=== PATIENT | female | born 1955 | race Caucasian/White ===

== ENCOUNTER 2021-09-10 04:42 | Emergency (ER) | payer SELFPAY ==
[~2021-09-10] VITALS: Ht 170.2 cm; Wt 63.5 kg
[~2021-09-10 04:42] MED LIST: IBUHYD PO; PENVK500 PO
[2021-09-10] MEDS ORDERED: MAGCIT300 PO (07:15)
[2021-09-10] MEDS ORDERED: DOCU100 PO (07:15)
== END 2021-09-10 07:26 | disposition home or self-care (01) ==
LOC: ER 04:42
DX: K59.00 Constipation, unspecified (principal)
CPT/HCPCS: 74018; 99283-25; A9270

== ENCOUNTER 2022-08-08 13:07 | Inpatient (IN) | payer OTHER ==
[~2022-08-08] VITALS: Ht 172.7 cm; Wt 50.5 kg
[~2022-08-08 13:07] MED LIST changes: +DOCU100 PO; +MAGCIT300 PO
[2022-08-08 13:52] LABS: Source, Urine Foley catheter
[2022-08-08 13:56] LABS: Appearance, Urine Clear (Clear); Bilirubin, Urine Neg (Neg); Blood, Urine 2+ (Neg); Glucose Qualitative, Urine Neg (Neg); Ketones, Urine 2+ (Neg); Leukocyte Esterase, Urine Neg (Neg); Nitrite, Urine Neg (Neg); Protein, Urine Neg (Neg); Urobilinogen, Urine NORM (Normal); pH, Urine 6.5 (5.0-8.0)
[2022-08-08 14:04] LABS: Color, Urine Pale Yellow (P-Yellow)
[2022-08-08 14:06] LABS: Amorphous Light (0-Heavy); Bacteria Mod /hpf; Red Blood Cells, Urine 0-2 /hpf (0-2); Renal Epithelial Rare /hpf (0-Rare); Squamous Epithelial Cells Rare /hpf (Few); White Blood Cells, Urine 0-2 /hpf (0-5)
[2022-08-08 16:06] LABS: BASOPHILS ABSOLUTE AUTO 0.07 K/mm3 (0.00-0.23); BASOPHILS PERCENT AUTO 0 % (0-2); EOSINOPHILS ABSOLUTE AUTO 0.02 K/mm3 (0.00-0.68); EOSINOPHILS PERCENT AUTO 0 % (0-6); Hematocrit 28.1 % (33.0-51.0); Hemoglobin 8.3 g/dL (11.5-16.0); IMMATURE GRAN ABSOLUTE AUTO 0.18 K/mm3 (0.00-0.10); IMMATURE GRAN PERCENT AUTO 1 % (0-1); LYMPHOCYTES ABSOLUTE AUTO 1.04 K/mm3 (0.84-5.20); LYMPHOCYTES PERCENT AUTO 6 % (21-46); MONOCYTES ABSOLUTE AUTO 0.96 K/mm3 (0.16-1.47); MONOCYTES PERCENT AUTO 5 % (4-13); Mean Corpuscular HGB 19.5 pg (26.0-34.0); Mean Corpuscular HGB Conc 29.5 g/dL (31.5-36.5); Mean Corpuscular Volume 66 fL (80-100); Mean Platelet Volume 8.3 fL (9.1-12.4); NEUTROPHILS ABSOLUTE AUTO 16.07 K/mm3 (1.96-9.15); NEUTROPHILS PERCENT AUTO 88 % (41-73); Platelet Count 556 K/mm3 (150-400); RDW Coefficient Variation 16.8 % (11.7-14.2); RDW Standard Deviation 38.9 fL (35.1-46.3); Red Blood Cell Count 4.26 M/mm3 (3.80-5.20); White Blood Cell Count 18.34 K/mm3 (4.00-11.30)
[2022-08-08 16:24] LABS: Albumin, Blood 2.9 g/dL (3.4-5.0); Albumin/Globulin Ratio 0.6 (0.8-1.8); Bilirubin, Total 1.6 mg/dL (0.1-1.0); Bun/Creatinine Ratio 16.1 (12.0-20.0); Creatinine, Blood 0.62 mg/dL (0.40-1.00); Globulin, Blood 4.5 g/dL (2.2-4.0); Potassium, Blood 3.5 mmol/L (3.5-5.5); Total Protein, Blood 7.4 g/dL (6.4-8.2)
[2022-08-08 19:13] LABS: International Normalized Ratio 1.14; Prothrombin Time Results 11.9 Sec (9.7-11.5)
[2022-08-08 20:37] LABS: Influenza A, PCR NEGATIVE (NEGATIVE); Influenza B, PCR NEGATIVE (NEGATIVE); Resp Syncytial Virus, PCR NEGATIVE (NEGATIVE); SARS-Cov-2 (COVID-19) PCR, MMC NEGATIVE (NEGATIVE)
--- NOTE | 2022-08-09 00:54 | NUR ---
ADMIT PATIENT ADMITTED FROM ER AT 2100. PATIENT SETTLED INTO ROOM. PATIENT ORIENTED TO CALL LIGHT AND TV CONTROL. PATIENT HAS LOPEZ IN PLACE UPON ARRIVAL. PATENT AND DRAINING YELLOW URINE. PATIENT HAD BM UPON ARRIVAL. ADMISSION COMPLETE. PATIENT RESTING COMFORTABLY.
[2022-08-09 04:50] LABS: BASOPHILS ABSOLUTE AUTO 0.05 K/mm3 (0.00-0.23); BASOPHILS PERCENT AUTO 0 % (0-2); EOSINOPHILS ABSOLUTE AUTO 0.09 K/mm3 (0.00-0.68); EOSINOPHILS PERCENT AUTO 1 % (0-6); Hematocrit 24.6 % (33.0-51.0); Hemoglobin 7.2 g/dL (11.5-16.0); IMMATURE GRAN ABSOLUTE AUTO 0.12 K/mm3 (0.00-0.10); IMMATURE GRAN PERCENT AUTO 1 % (0-1); LYMPHOCYTES ABSOLUTE AUTO 1.11 K/mm3 (0.84-5.20); LYMPHOCYTES PERCENT AUTO 7 % (21-46); MONOCYTES ABSOLUTE AUTO 1.22 K/mm3 (0.16-1.47); MONOCYTES PERCENT AUTO 7 % (4-13); Mean Corpuscular HGB 19.4 pg (26.0-34.0); Mean Corpuscular HGB Conc 29.3 g/dL (31.5-36.5); Mean Corpuscular Volume 66 fL (80-100); Mean Platelet Volume 8.3 fL (9.1-12.4); NEUTROPHILS ABSOLUTE AUTO 14.39 K/mm3 (1.96-9.15); NEUTROPHILS PERCENT AUTO 85 % (41-73); Platelet Count 534 K/mm3 (150-400); RDW Coefficient Variation 16.9 % (11.7-14.2); RDW Standard Deviation 39.5 fL (35.1-46.3); Red Blood Cell Count 3.72 M/mm3 (3.80-5.20); White Blood Cell Count 16.98 K/mm3 (4.00-11.30)
[2022-08-09 05:09] LABS: Calcium, Blood 7.9 mg/dL (8.5-10.1); Creatinine, Blood 0.58 mg/dL (0.40-1.00); Potassium, Blood 3.9 mmol/L (3.5-5.5)
--- NOTE | 2022-08-09 05:29 | NUR ---
SHIFT SUMMARY PATIENT MEDICATED FOR PAIN X2, NAUSEA X1, AND FOR FEVER X1. PATIENT IS IND IN ROOM. PATIENT HAS LOPEZ THAT IS PATENT AND DRAINING TO GRAVITY. PATIENT HAS MASS IN VAGINA, AND WAS UNABLE TO URINATE STARTING YESTERDAY, CATHETER PLACED IN ER WITH 1000ML OUTPUT. PATIENT DRINKING WELL. PATIENT HAD FEVER OF 101.6 ORALLY AROUND 0400. MEDICATED WITH TYLENOL, EFFECTIVE, RECHECK 99.3. PATIENT SLEPT ON AND OFF. PATIENT VERY PLEASANT AND COOPERATIVE WITH CARE.
--- NOTE | 2022-08-09 18:03 | NUR ---
SHIFT SUMMARY NO ACUTE CHANGES DURING SHIFT. PT ALERT AND ORIENTED, CALLS APPROPRIATELY. PT C/O ABD PAIN WHEN TOUCHED, MEDICATED WITH PRN PAIN MEDICATION. ONCOLOGY CONSULTED REGARDING MASS. PT INDEPENDENT IN ROOM. LOPEZ IN PLACE, DRAINING TO GRAVITY. WILL CONTINUE TO MONITOR. CALL LIGHT WITHIN REACH.
--- NOTE | 2022-08-10 03:51 | NUR ---
PLATE PUT IN WORKER SUMMARY VSS. ALERT AND ORIENTED. CONTINUES TO VOICE PAIN OF LOWER ABD - BLADDER AREA. RECEIVING ANALGESICS ABOUT EVERY 4 HRS FOR LOWER ABD PAIN. HOWEVER, VOICED PAIN IS TRENDINGDOWN FROM BEFORE. SEE MAR FOR DETAILS. LOPEZ DRAINING LIGHT YELLOW. PT VOICED IT WAS "ORANGE" BEFORE. HAS BEEN RESTING QUIETLY BETWEEN TIMES SHE REQUESTED ANALGESICS. CALL LIGHT IN REACH.
[2022-08-10 04:13] LABS: Hematocrit 24.5 % (33.0-51.0); Hemoglobin 7.3 g/dL (11.5-16.0); Mean Corpuscular HGB 19.9 pg (26.0-34.0); Mean Corpuscular HGB Conc 29.8 g/dL (31.5-36.5); Mean Corpuscular Volume 67 fL (80-100); Mean Platelet Volume 8.4 fL (9.1-12.4); Platelet Count 515 K/mm3 (150-400); RDW Coefficient Variation 16.7 % (11.7-14.2); RDW Standard Deviation 40.5 fL (35.1-46.3); Red Blood Cell Count 3.67 M/mm3 (3.80-5.20); White Blood Cell Count 8.11 K/mm3 (4.00-11.30)
[2022-08-10 04:36] LABS: Albumin, Blood 2.2 g/dL (3.4-5.0); Albumin/Globulin Ratio 0.6 (0.8-1.8); Bilirubin, Total 0.5 mg/dL (0.1-1.0); Bun/Creatinine Ratio 8.4 (12.0-20.0); Creatinine, Blood 0.59 mg/dL (0.40-1.00); Percent Saturation 4.2 % (15.0-50.0); Potassium, Blood 3.7 mmol/L (3.5-5.5); Total Protein, Blood 6.2 g/dL (6.4-8.2)
--- NOTE | 2022-08-10 19:38 | NUR ---
SHIFT SUMMARY: NO ACUTE EVENTS. C/O PAIN IN LOWER ABDOMEN; MEDICATED PER EMAR WITH ADEQUATE RELIEF. LOPEZ DRAINING ADEQUATE URINE, CL YELLOW. GETTING UP TO BR WITH SBA, HAD BM TODAY. TOLERATING PO INTAKE. WILL BE NPO AT [facility] FOR COLONOSCOPY TOMORROW AFTERNOON.
--- NOTE | 2022-08-11 04:43 | NUR ---
SAMPLE MAKER ORIGINAL SUMMARY CONTINUES TO C/O PAIN OF LOWER ABD. HOWEVER, VOICED PAIN IS LESS INTENSE, RECEIVING ANALGESIC ABOUT EVERY 4 HRS, (SEE MAR FOR DETAILS). HAS BEEN RESTING MORE SOUNDLY TONIGHT COMPARED TO THAT OF 24 HR AGO. AWAKENED EARLIER AND VOICED HAPPY THAT SHE WAS SLEEPING BETTER TONIGHT. LOPEZ DRAINING CLEAR YELLOW. UP AD JASMYN WITH SUPERVISION. VSS. CALLED IN ORDERS FOR PROCEDURE PREP TODAY, INCLUDING NPO EXCEPT WATER, GOLYTELY TO START AT 0700, AND NPO AT 1300 FOR PROCEDURE. PT NOTIFIED. CURRENTLY RESTING QUIETLY. CALL LIGHT IN REACH.
[2022-08-11 04:52] LABS: Hemoglobin 7.9 g/dL (11.5-16.0); Mean Corpuscular HGB 19.7 pg (26.0-34.0); Mean Corpuscular HGB Conc 29.3 g/dL (31.5-36.5); Mean Corpuscular Volume 67 fL (80-100); Mean Platelet Volume 8.4 fL (9.1-12.4); Platelet Count 628 K/mm3 (150-400); RDW Coefficient Variation 17.1 % (11.7-14.2); RDW Standard Deviation 40.8 fL (35.1-46.3); Red Blood Cell Count 4.02 M/mm3 (3.80-5.20)
[2022-08-11 05:22] LABS: Albumin, Blood 2.4 g/dL (3.4-5.0); Albumin/Globulin Ratio 0.6 (0.8-1.8); Bilirubin, Total 0.3 mg/dL (0.1-1.0); Calcium, Blood 8.2 mg/dL (8.5-10.1); Creatinine, Blood 0.5 mg/dL (0.40-1.00); Globulin, Blood 4.2 g/dL (2.2-4.0); Potassium, Blood 3.7 mmol/L (3.5-5.5); Total Protein, Blood 6.6 g/dL (6.4-8.2)
--- NOTE | 2022-08-11 19:04 | NUR ---
SHIFT SUMMARY PT HAD BOWEL PREP MOST OF THE SHIFT AND HAD A COLONOSCOPY THIS AFTERNOON. BIOPSIES TAKEN DURING PROCEDURE. PT ADVANCED TO FULL LIQ DIET. NO OTHER ACUTE CHANGES IN ASSESSMENT AT THIS TIME. PT TOLERATING HER NEWS AND SITUATION WELL. PT RESTING IN BED. CALL LIGHT IN REACH. DENIES OTHER NEEDS AT THIS TIME.
[2022-08-12 05:10] LABS: BASOPHILS ABSOLUTE AUTO 0.05 K/mm3 (0.00-0.23); BASOPHILS PERCENT AUTO 1 % (0-2); EOSINOPHILS ABSOLUTE AUTO 0.18 K/mm3 (0.00-0.68); EOSINOPHILS PERCENT AUTO 3 % (0-6); Hematocrit 24.7 % (33.0-51.0); Hemoglobin 7.5 g/dL (11.5-16.0); IMMATURE GRAN ABSOLUTE AUTO 0.03 K/mm3 (0.00-0.10); IMMATURE GRAN PERCENT AUTO 0 % (0-1); LYMPHOCYTES ABSOLUTE AUTO 1.47 K/mm3 (0.84-5.20); LYMPHOCYTES PERCENT AUTO 22 % (21-46); MONOCYTES ABSOLUTE AUTO 0.68 K/mm3 (0.16-1.47); MONOCYTES PERCENT AUTO 10 % (4-13); Mean Corpuscular HGB 20.2 pg (26.0-34.0); Mean Corpuscular HGB Conc 30.4 g/dL (31.5-36.5); Mean Corpuscular Volume 66 fL (80-100); Mean Platelet Volume 8.1 fL (9.1-12.4); NEUTROPHILS PERCENT AUTO 65 % (41-73); Platelet Count 578 K/mm3 (150-400); RDW Coefficient Variation 16.7 % (11.7-14.2); RDW Standard Deviation 39.9 fL (35.1-46.3); Red Blood Cell Count 3.72 M/mm3 (3.80-5.20); White Blood Cell Count 6.81 K/mm3 (4.00-11.30)
[2022-08-12 05:16] LABS: Bun/Creatinine Ratio 9.3 (12.0-20.0); Calcium, Blood 8.3 mg/dL (8.5-10.1); Creatinine, Blood 0.54 mg/dL (0.40-1.00); Potassium, Blood 3.7 mmol/L (3.5-5.5)
--- NOTE | 2022-08-12 07:32 | NUR ---
SHIFT PRODUCTION SUPERVISOR SUMMARY VSS. HAS BEEN RESTING QUIETLY WITH FEW INTERRUPTIONS THROUGH NOCT. ALTHOUGH STILL REQUESTING ANALGESICS FOR ABD PAIN, THE PAIN IS LESS INTENSE AND ASKED FOR MEDS FURTHER APART TIMES. STATED SHE WAS HAVING BETTER SLEEP WELL. LOPEZ DRAINING, CLEAR YELLOW. HAD SOME NAUSEA ONCE, ZOFRAN EFFECTIVE. CALL LIGHT IN REACH. WILL CONTINUE TO MONITOR.
[2022-08-12] MEDS ORDERED: CEFD300 PO (16:21)
[2022-08-12] MEDS ORDERED: OXYACE7.5T PO (16:21)
[2022-08-12] MEDS ORDERED: ONDA4 PO (16:21)
[2022-08-12] MEDS ORDERED: MIRALAX17 GM PO (16:22)
--- NOTE | 2022-08-12 17:09 | NUR ---
DISCHARGED PT DISCHARGED AT 1700. PT EDUCATED ON NEW MEDS AND FOLLOW UP APPOINTMENTS. PT SENT WITH HARD SCRIPT FOR PERCOCET. NEW PT APPOINTMENT SET UP BY DC SIMONIZER WITH [facility]. THIS RN SPOKE WITH DR. BURT ABOUT REFERAL FOR SURGERY. DR. BURT CONFIRMED THAT HE WILL BE SETTING THAT ALL UP FOR THE PT. NO OTHER ACUTE CHANGES IN ASSESSMENT PRIOR TO DC. PT EDUCATED ON LOPEZ CATH HOME CARE. PT WHEELED OUT AND HER FRIEND DROVE HER HOME.
--- NOTE | 2022-08-19 06:20 | NUR ---
08/19/22 0620 Rosio Puente NOTE: PRIOR TO PROCEDURE HISTORY, CHART, MEDICATIONS AND ALLERGIES REVIEWED BEFORE START OF PROCEDURE. PATIENT CONFIRMS NPO STATUS AND AGREES WITH SCHEDULED PROCEDURE. 3-LEAD EKG REVIEWED WITH PHYSICIAN PRIOR TO START OF PROCEDURE. MONITOR INTACT WITH CONTINUOUS PULSE OXIMETRY,CAPNOGRAPHY, 3-LEAD EKG, INTERMITTENT BP. SUPPLEMENTAL O2 TO BE TITRATED THROUGHOUT PROCEDURE TO MAINTAIN O2 SATURATION ABOVE 90%. PATIENT DETERMINED TO BE ASA APPROPRIATE FOR PROPOFOL SEDATION PRIOR TO START OF PROCEDURE BY DR. BURT
== END 2022-08-12 16:57 | disposition home or self-care (01) | DRG 872 ==
LOC: ER 13:07 → MEDS 17:57
PROVIDERS: Emergency Medicine; Internal Medicine; Internal Medicine Gastroenterology; Student in an Organized Health Care Education/Training Program; ADMIT Hospitalist
PROC: 0DBP8ZX Excision of Rectum, Via Natural or Artificial Opening Endoscopic, Diagnostic (ICD-10-PCS; principal; 2022-08-11 16:00)
DX: A41.9 Sepsis, unspecified organism (principal); N39.0 Urinary tract infection, site not specified; E87.1 Hypo-osmolality and hyponatremia; D64.9 Anemia, unspecified; K59.09 Other constipation; Z20.822 Contact with and (suspected) exposure to COVID-19; R33.9 Retention of urine, unspecified; R91.1 Solitary pulmonary nodule; R19.00 Intra-abdominal and pelvic swelling, mass and lump, unspecified site; D50.9 Iron deficiency anemia, unspecified; K62.9 Disease of anus and rectum, unspecified; D75.839 Thrombocytosis, unspecified; Z90.89 Acquired absence of other organs; Z79.899 Other long term (current) drug therapy
CPT/HCPCS: 0241U; 36415; 51702; 51798; 74177; 80048; 80053; 81001; 82378; 82728; 83540; 83550; 83605; 85025; 85027; 85610; 85730; 86304; 87086; 88305; 96374-59; 96375-59; 96376-59; 99285-25; A9270; J0696; J1650; J2270; J2405; J2704; J7030; J7120; Q9967

== ENCOUNTER 2022-08-29 11:20 | Inpatient (IN) | payer OTHER ==
[~2022-08-29] VITALS: Ht 170.2 cm; Wt 48.9 kg
[~2022-08-29 11:20] MED LIST changes: +CEFD300 PO; +MIRALAX17 GM PO; +ONDA4 PO; +OXYACE7.5T PO
[2022-08-29 12:15] LABS: BASOPHILS ABSOLUTE AUTO 0.06 K/mm3 (0.00-0.23); BASOPHILS PERCENT AUTO 0 % (0-2); EOSINOPHILS PERCENT AUTO 1 % (0-6); Hematocrit 27.5 % (33.0-51.0); Hemoglobin 7.8 g/dL (11.5-16.0); IMMATURE GRAN ABSOLUTE AUTO 0.12 K/mm3 (0.00-0.10); IMMATURE GRAN PERCENT AUTO 1 % (0-1); LYMPHOCYTES ABSOLUTE AUTO 1.41 K/mm3 (0.84-5.20); LYMPHOCYTES PERCENT AUTO 9 % (21-46); MONOCYTES ABSOLUTE AUTO 1.15 K/mm3 (0.16-1.47); MONOCYTES PERCENT AUTO 8 % (4-13); Mean Corpuscular HGB Conc 28.4 g/dL (31.5-36.5); Mean Corpuscular Volume 67 fL (80-100); Mean Platelet Volume 8.1 fL (9.1-12.4); NEUTROPHILS ABSOLUTE AUTO 12.36 K/mm3 (1.96-9.15); NEUTROPHILS PERCENT AUTO 81 % (41-73); Platelet Count 698 K/mm3 (150-400); RDW Coefficient Variation 17.9 % (11.7-14.2)
[2022-08-29 12:59] LABS: Albumin, Blood 2.9 g/dL (3.4-5.0); Albumin/Globulin Ratio 0.7 (0.8-1.8); Bilirubin, Total 0.5 mg/dL (0.1-1.0); Calcium, Blood 8.9 mg/dL (8.5-10.1); Creatinine, Blood 0.66 mg/dL (0.40-1.00); Globulin, Blood 4.1 g/dL (2.2-4.0)
[2022-08-29 15:26] LABS: Source, Urine Foley catheter
[2022-08-29 15:28] LABS: Appearance, Urine Clear (Clear); Bilirubin, Urine Neg (Neg); Blood, Urine 4+ (Neg); Color, Urine Yellow (P-Yellow); Glucose Qualitative, Urine Neg (Neg); Ketones, Urine 1+ (Neg); Leukocyte Esterase, Urine 1+ (Neg); Nitrite, Urine Neg (Neg); Protein, Urine Neg (Neg); Urobilinogen, Urine NORM (Normal)
[2022-08-29 15:37] LABS: Bacteria Mod /hpf; Squamous Epithelial Cells Few /hpf (Few)
[2022-08-29] MEDS ORDERED: Norco 7.5/325 Tablet PO (16:03)
[2022-08-29] MEDS ORDERED: ONDA4ODT PO (16:04)
[2022-08-30 04:00] LABS: BASOPHILS ABSOLUTE AUTO 0.06 K/mm3 (0.00-0.23); BASOPHILS PERCENT AUTO 0 % (0-2); EOSINOPHILS ABSOLUTE AUTO 0.12 K/mm3 (0.00-0.68); EOSINOPHILS PERCENT AUTO 1 % (0-6); Hematocrit 25.5 % (33.0-51.0); Hemoglobin 7.2 g/dL (11.5-16.0); IMMATURE GRAN ABSOLUTE AUTO 0.13 K/mm3 (0.00-0.10); IMMATURE GRAN PERCENT AUTO 1 % (0-1); LYMPHOCYTES ABSOLUTE AUTO 0.89 K/mm3 (0.84-5.20); LYMPHOCYTES PERCENT AUTO 6 % (21-46); MONOCYTES ABSOLUTE AUTO 1.39 K/mm3 (0.16-1.47); MONOCYTES PERCENT AUTO 10 % (4-13); Mean Corpuscular HGB 19.3 pg (26.0-34.0); Mean Corpuscular HGB Conc 28.2 g/dL (31.5-36.5); Mean Corpuscular Volume 68 fL (80-100); Mean Platelet Volume 8.1 fL (9.1-12.4); NEUTROPHILS ABSOLUTE AUTO 11.63 K/mm3 (1.96-9.15); NEUTROPHILS PERCENT AUTO 82 % (41-73); Platelet Count 493 K/mm3 (150-400); RDW Coefficient Variation 18.6 % (11.7-14.2); RDW Standard Deviation 42.5 fL (35.1-46.3); Red Blood Cell Count 3.73 M/mm3 (3.80-5.20); White Blood Cell Count 14.22 K/mm3 (4.00-11.30)
[2022-08-30 04:25] LABS: Albumin, Blood 2.4 g/dL (3.4-5.0); Albumin/Globulin Ratio 0.6 (0.8-1.8); Bilirubin, Total 0.8 mg/dL (0.1-1.0); Calcium, Blood 8.8 mg/dL (8.5-10.1); Creatinine, Blood 0.75 mg/dL (0.40-1.00); Globulin, Blood 4.1 g/dL (2.2-4.0); Potassium, Blood 3.9 mmol/L (3.5-5.5); Total Protein, Blood 6.5 g/dL (6.4-8.2)
--- NOTE | 2022-08-30 05:10 | NUR ---
SHIFT SUMMARY PT A&Ox4, CALLS AND COMMUNICATES NEEDS APPROPRIATELY. VSS, SpO2> 92% RA, SINUS 80's. PT FREQUENTLY NEEDING TO USE BATHROOM DURING SHIFT, PT AMBULATED WITH SBA. PT WITH MULTIPLE, VERY SMALL, LOOSE BM's AND PASSING LOTS OF GAS. NO EMESIS THIS SHIFT. LOPEZ CATHETER IN PLACE, PATENT, DRAINING TO GRAVITY. PT WITH INCREASING ABDOMINAL PAIN, MEDICATED PER EMAR, PT REPORTS THAT PASSING GAS HELPS EASE PAIN. PT REMAINED NPO, EXCEPT SMALL SIPS OF WATER DURING MEDICATION ADMINISTRATION. NO OTHER EVENTS THIS SHIFT, WILL REPORT TO DAY SHIFT RN.
--- NOTE | 2022-08-30 09:58 | NUR ---
08/30/22 0958 Destiny Posada NO PREOP ANTIBIOTICS ORDERED PATIENT IS ON SCHEDULED ANTIBIOTICS.
--- NOTE | 2022-08-30 15:24 | NUR ---
SHIFT SUMMARY PT IS A&O, PLEASANT AND CO-OP WITH CARE. DR TSE IN TO SEE PT DURING SHIFT REPORT TO DISCUSS PLAN OF CARE. PT NPO AT START OF SHIFT FOR SX TO PLACE COLOSTOMY. PT UP TO SHOWER PRIOR TO SX, INDEPENDENT IN . DR MURRAY IN TO SEE PT AND DISCUSS SX PROCESS, PT AGREEABLE AND GRATEFUL. PT TOLERATED SX WELL AND RETURNED TO ; VSS, SEE CHART. COLOSTOMY TO LLQ, WNL'S. PT BEING TREATED FOR UTI. PER DR MURRAY TO PT, MEDIPORT PLACEMENT PLAN FOR THURSDAY. PT CLEARED FOR REGULAR DIET WHEN RETURNED TO . PT ABLE TO EAT A FEW BITES OF EVERYTHING AT [facility], BUT REPORTED FENTANYL GIVEN AFTER SX MADE HER A LITTLE DIZZY. ZOFRAN GIVEN PER REQUEST. FAMILY IN TO VISIT IMMEDIATELY AFTER RETURNING TO , LATER LEAVING SO PT COULD REST. PT HAS BEEN AWAKE AND ON HER PHONE MOST OF THE DAY. PT REPORTED SM AMT OF PAIN IN ABD WHEN COUGHING ONLY. 1 UNIT PRBC'S ORDERED THIS AM BY DR MURRAY. PT REFUSING TRANSFUSION AT THIS TIME. WANTS TO WAIT AND SEE UNTIL AT LEAST TOMORROW. DR MURRAY UPDATED AND REPORTED MINIMAL BLOOD LOSS AT SX. PT LYING FOWLERS, TALKING ON PHONE. DENIED FURTHER NEEDS AT THIS TIME. CALL LT IN REACH.
--- NOTE | 2022-08-30 18:44 | NUR ---
PT REPORTED LARGE BM THIS MORNING, PRIOR TO SX FOR OSTOMY PLACEMENT. PT REPORTS PASSING GAS THIS EVENING FROM ST[place].
[2022-08-31 03:57] LABS: BASOPHILS ABSOLUTE AUTO 0.02 K/mm3 (0.00-0.23); BASOPHILS PERCENT AUTO 0 % (0-2); EOSINOPHILS ABSOLUTE AUTO 0.04 K/mm3 (0.00-0.68); EOSINOPHILS PERCENT AUTO 0 % (0-6); Hemoglobin 7.4 g/dL (11.5-16.0); IMMATURE GRAN ABSOLUTE AUTO 0.11 K/mm3 (0.00-0.10); IMMATURE GRAN PERCENT AUTO 1 % (0-1); LYMPHOCYTES PERCENT AUTO 10 % (21-46); MONOCYTES ABSOLUTE AUTO 0.96 K/mm3 (0.16-1.47); MONOCYTES PERCENT AUTO 8 % (4-13); Mean Corpuscular HGB 19.3 pg (26.0-34.0); Mean Corpuscular HGB Conc 28.5 g/dL (31.5-36.5); Mean Corpuscular Volume 68 fL (80-100); NEUTROPHILS ABSOLUTE AUTO 10.24 K/mm3 (1.96-9.15); NEUTROPHILS PERCENT AUTO 81 % (41-73); Platelet Count 520 K/mm3 (150-400); RDW Coefficient Variation 18.6 % (11.7-14.2); RDW Standard Deviation 42.6 fL (35.1-46.3); Red Blood Cell Count 3.83 M/mm3 (3.80-5.20); White Blood Cell Count 12.67 K/mm3 (4.00-11.30)
[2022-08-31 04:16] LABS: Albumin, Blood 2.2 g/dL (3.4-5.0); Albumin/Globulin Ratio 0.6 (0.8-1.8); Bilirubin, Total 0.6 mg/dL (0.1-1.0); Bun/Creatinine Ratio 19.7 (12.0-20.0); Calcium, Blood 7.8 mg/dL (8.5-10.1); Creatinine, Blood 0.56 mg/dL (0.40-1.00); Globulin, Blood 3.9 g/dL (2.2-4.0); Potassium, Blood 4.2 mmol/L (3.5-5.5); Total Protein, Blood 6.1 g/dL (6.4-8.2)
--- NOTE | 2022-08-31 05:44 | NUR ---
SHIFT SUMMARY PT A&Ox4, CALLS AND COMMUNICATES NEEDS APPROPRIATELY. VSS, SpO2> 92% RA, PT NOT ON TELE. PT REPORTS MILD-MODERATE ABDMONIAL CRAMPING/ACHE, STATES THAT SHE FEEL IT IS FROM THE PROCEDURE, MEDICATED PER EMAR. PROVIDED SOME EDUCATION ABOUT HER COLOSTOMY, PT IS COMFORTABLE WITH LOOKING AT STOMA AND EAGER TO LEARN ABOUT COLOSTOMY. NO STOOL OUTPUT THIS SHIFT, OSTOMY IS PASSING GAS. NO OTHER EVENTS THIS SHIFT. WILL REPORT TO DAY SHIFT RN.
[2022-08-31 08:57] LABS: Gentamicin, Trough <0.2 ug/mL (0.0-1.9)
--- NOTE | 2022-08-31 19:34 | NUR ---
SHIFT SUMMARY PT ALERT, ORIENTED x4; CALM AND COOPERATIVE WITH CARE. PT SBA IN ROOM. UP FOR SHOWER THIS AM. PT REPORTS ABD PAIN, MEDICATED x2. PT HAVING NAUSEA INTERIMTTENTLY DURING SHIFT, ONE EPISODE OF EMESIS. PT DENIES CHEST PAIN/PRESSURE, SOB, DIZZINESS AND NUMB/TINGLING. OSTOMY RED AND BEEFY, DRAINING LIGHT BROWN LIQUID. PT HAVING MULTIPLE BM PER RECTUM T/O SHIFT. DR MURRAY AT BEDSIDE THIS AM, PLANS FOR MEDIPORT TOMORROW, NPO AT TX. NO OTHER ACUTE CHANGES NOTED. REPORT GIVEN TO ONCOMING RN.
[2022-09-01 04:03] LABS: BASOPHILS ABSOLUTE AUTO 0.05 K/mm3 (0.00-0.23); BASOPHILS PERCENT AUTO 1 % (0-2); EOSINOPHILS ABSOLUTE AUTO 0.14 K/mm3 (0.00-0.68); EOSINOPHILS PERCENT AUTO 2 % (0-6); Hematocrit 25.2 % (33.0-51.0); Hemoglobin 7.3 g/dL (11.5-16.0); IMMATURE GRAN ABSOLUTE AUTO 0.04 K/mm3 (0.00-0.10); IMMATURE GRAN PERCENT AUTO 1 % (0-1); LYMPHOCYTES ABSOLUTE AUTO 1.87 K/mm3 (0.84-5.20); LYMPHOCYTES PERCENT AUTO 24 % (21-46); MONOCYTES ABSOLUTE AUTO 0.71 K/mm3 (0.16-1.47); MONOCYTES PERCENT AUTO 9 % (4-13); Mean Corpuscular HGB 19.5 pg (26.0-34.0); Mean Corpuscular Volume 67 fL (80-100); Mean Platelet Volume 8.1 fL (9.1-12.4); NEUTROPHILS ABSOLUTE AUTO 5.04 K/mm3 (1.96-9.15); NEUTROPHILS PERCENT AUTO 64 % (41-73); Platelet Count 524 K/mm3 (150-400); RDW Coefficient Variation 18.6 % (11.7-14.2); RDW Standard Deviation 42.4 fL (35.1-46.3); Red Blood Cell Count 3.74 M/mm3 (3.80-5.20); White Blood Cell Count 7.85 K/mm3 (4.00-11.30)
[2022-09-01 04:30] LABS: Albumin, Blood 2.3 g/dL (3.4-5.0); Albumin/Globulin Ratio 0.6 (0.8-1.8); Bilirubin, Total 0.4 mg/dL (0.1-1.0); Bun/Creatinine Ratio 13.1 (12.0-20.0); Calcium, Blood 8.3 mg/dL (8.5-10.1); Creatinine, Blood 0.53 mg/dL (0.40-1.00); Globulin, Blood 3.9 g/dL (2.2-4.0); Total Protein, Blood 6.2 g/dL (6.4-8.2)
--- NOTE | 2022-09-01 04:48 | NUR ---
SHIFT SUMMARY PT A&Ox4, CALLS AND COMMUNICATES NEEDS APPROPRIATELY. VSS, SpO2> 92% RA, PT NOT ON TELE. PT STILL REPORTING ABDOMINAL CRAMPING BUT THAT IT IS TOLERABLE AND THAT SHE UNDERSTANDS IT IS PART OF THE HEALING PROCESS. PT NPO AT 0000. NO OTHER EVENTS THIS SHIFT, WILL REPORT TO DAY SHIFT RN.
--- NOTE | 2022-09-01 10:55 | NUR ---
THE PATIENT WAS BROUGHT TO DAY SURGERY FOR HER PROCEDURE
--- NOTE | 2022-09-01 12:05 | NUR ---
PT IN PACU. RADIOLOGY DR. RAND CONFIRMED PLACEMENT OF PORT. NO PNEUMOTHORAX.
--- NOTE | 2022-09-01 12:39 | NUR ---
PT IN ROOM 227 FROM PACU. RECEIVED REPORT FROM [facility] AND [facility]. PT A&OX4, VSS/RA, STUART PO, PAIN TREATED WITH PO OXY, LOPEZ PATENT & DRAINING YELLOW URINE, STAT LOCK ON, OFF FLOOR.
--- NOTE | 2022-09-01 13:01 | NUR ---
TRANSFER NOTE PT TO SURGERY THIS AM FOR MEDIPORT PLACEMENT. PT ALERT, ORIENTED x4; CALM AND COOPERATIVE WITH CARE. PT RESTING IN BED, UP IND/SBA IN ROOM. PT REPORTING PAIN, DENIES NEED FOR INTERVENTION THIS AM. PT REPORTING INTERMITTENT NAUSEA. PT DENIES CHEST PAIN/PRESSURE, SOB, DIZZINESS AND NUMB/TINGLING T/O SHIFT. NO OTHER ACUTE CHANGES NOTED. REPORT GIVEN TO RN ASSUMING CARE OF PATIENT, PT TRANSFERING TO ROOM 227 POST MEDIPORT PLACEMENT
--- NOTE | 2022-09-01 16:55 | NUR ---
SHIFT SUMMARY PT A&OX4, VSS/RA, STUART PO, LOPEZ PATENT & DRAINING YELLOW URINE, STAT LOCK ON, OFF FLOOR, AMB SBA BRP FOR BMs, PAIN MANAGED WITH 10 MG [facility] PRN. S/P MEDIPORT PLACEMENT; POD2 LAP SIG COLECTOMY WITH COLOSTOMY BEEFY RED WITH LIQUID BROWN/RED OUT. PET SCAN SCHED FOR 09/02 @ 1PM, PT REP PLANNED DC WITH GEN SURGEON SO SHE CAN GO TO APPT PRIOR TO GOING HOME, PCP AWARE. PT IS GOING TO REVIEW HER PACKET FROM [employer] TO ENSURE SHE KNOWS WHAT HER DIET IS. WILL REPORT TO ONCOMING NOC RN.
--- NOTE | 2022-09-02 06:15 | NUR ---
SHIFT SUMMARY PT A&OX4, PLEASANT AND COOPERATIVE. MEDICATED FOR PAIN TWICE, AND NAUSEA ONCE. TOLERATING PO INTAKE. INDEPENDENT IN ROOM. OSTOMY VERY ACTIVE WITH FLATUS, PASSING BROWN/PASTY STOOL. LOPEZ IN PLACE AND DRAINING TO GRAVITY, YELLOW/CLEAR. CALLS APPROPRIATELY, CALL LIGHT WITHIN REACH.
[2022-09-02 08:53] LABS: Gentamicin, Trough 0.2 ug/mL (0.0-1.9)
--- NOTE | 2022-09-02 12:25 | NUR ---
DEMONSTRATED CHANGING OSTOMY APPLIANCE & BAG WITH PATIENT. EDUCATED ON FITTING APPLIANCE FOR OSTOMY, USING STOMA PASTE IF NEEDED, CLEANING BAG, CLEANING AROUND STOMA, CLEANING SKIN, CHANGING BAG W/O CHANGING APPLIANCE, EMPTYING & BURPING BAG. PATIENT VERBALIZED FEELING COMFORTABL AFTER THESE INSTRUCTIONS AND FEELS READY TO DISCHARGE HOME. HOME HEALTH ARRANGED FOR PATIENT BY CARE MANAGMENT.
[2022-09-02] MEDS ORDERED: HYDACE10B PO (13:06)
[2022-09-02] MEDS ORDERED: LACT PO (13:07)
[2022-09-02] MEDS ORDERED: Promod946 ML PO (13:07)
[2022-09-02] MEDS ORDERED: SIME80CH PO (13:07)
--- NOTE | 2022-09-02 13:45 | NUR ---
DISCHARE POD 3 LAP SIGMOID COLECTOMY W/ COLOSTOMY. X2 LAP SITES NOTED TO BE C/D/I. MINIMAL ABDOMINAL PAIN REPORTED, MANAGED PER EMAR. EATING & DRINKING WELL, DENIES N/V. LOPZE IN PLCAE DRAINING CLEAR YELLOW URINE. OSTOMY TO LLQ WITH BROWN OUTPUT, LIQUID/PASTY CONSISTENCY. FREQUENT FLATUS. DISCUSSED OSTOMY INSTRUCTIONS IN DEPTH, PATIENT VERBALIZED FEELING COMFORTABLE W/ OSTOMY AND LOOKS FORWARD TO CONTINUING EDCUATION FURTHER WITH HOME HEALTH. SENT [facility] WITH PATIENT, FAXED REMAINING RX'S. DISCUSSED DISCHARGE INSTRUCTIONS AND SENT WITH PATIENT. ESCORTED OUT VIA W/C.
== END 2022-09-02 13:30 | disposition home or self-care (01) | DRG 330 ==
LOC: ER 11:20 → PCU 15:58 → SURS 09-01 12:44
PROVIDERS: Student in an Organized Health Care Education/Training Program; Surgery; ADMIT Internal Medicine
PROC: 0D1N0Z4 Bypass Sigmoid Colon to Cutaneous, Open Approach (ICD-10-PCS; 2022-08-30)
PROC: 3E04305 Introduction of Other Antineoplastic into Central Vein, Percutaneous Approach (ICD-10-PCS; 2022-08-30)
PROC: 02HV33Z Insertion of Infusion Device into Superior Vena Cava, Percutaneous Approach (ICD-10-PCS; 2022-09-01)
PROC: B548ZZA Ultrasonography of Superior Vena Cava, Guidance (ICD-10-PCS; 2022-09-01)
PROC: 0JH60WZ Insertion of Totally Implantable Vascular Access Device into Chest Subcutaneous Tissue and Fascia, Open Approach (ICD-10-PCS; principal; 2022-09-01 10:30)
DX: C19 Malignant neoplasm of rectosigmoid junction (principal); K56.609 Unspecified intestinal obstruction, unspecified as to partial versus complete obstruction; N39.0 Urinary tract infection, site not specified; R64 Cachexia; Z68.1 Body mass index [BMI] 19.9 or less, adult; K59.09 Other constipation; Z98.890 Other specified postprocedural states; Z79.899 Other long term (current) drug therapy; Z85.038 Personal history of other malignant neoplasm of large intestine
CPT/HCPCS: 36415; 51702; 71250; 74177; 77001; 80053; 80170; 81001; 82378; 83690; 84484; 85025; 86850; 86900; 86901; 86923; 87086; 93005; 93010; 96374-59; 96375-59; 99285-25; A9270; C1788; J0690; J1100; J1170; J1580; J1642; J1650; J2250; J2270; J2370; J2405; J2543; J2704; J2795; J3010; J7050; J7120; Q9967

== ENCOUNTER 2025-01-16 08:39 | Day surgery (SDC) | payer OTHER ==
[~2025-01-16] VITALS: Ht 170.2 cm; Wt 67.8 kg
[~2025-01-16 08:39] MED LIST changes: +DICY20 PO; +HYDACE10B PO; +Ketorolac Tromethamine 30mg Vial ONE; +LACT PO; +Lactated Ringer's 1,000 ML IV ONE; +Midazolam HCl 1MG / ML 2ML Vial ONE; +Norco 7.5/325 Tablet PO; +ONDA4ODT MM; +ONDA4ODT PO; +Promod946 ML PO; +SENNA LAXATIVE8.6 MG PO; +SIME80CH PO; +propofoL 50 ML IV ONE
[2025-01-16] MEDS ORDERED: Lactated Ringer's 1,000 ML IV ONE (10:26)
[2025-01-16 12:39] VITALS: BP 110/87
== END 2025-01-16 12:38 | disposition home or self-care (01) ==
LOC: ORSCSDS 08:39
PROVIDERS: Internal Medicine Gastroenterology
PROC: 0DJD8ZZ Inspection of Lower Intestinal Tract, Via Natural or Artificial Opening Endoscopic (ICD-10-PCS; principal; 2025-01-16 10:30)
DX: Z85.048 Personal history of other malignant neoplasm of rectum, rectosigmoid junction, and anus (principal); Z90.49 Acquired absence of other specified parts of digestive tract
CPT/HCPCS: J1885; J2250; J2704; J7120

== ENCOUNTER → 2025-04-05 | Outpatient (CLI) | payer OTHER ==
[~2025-04-05] MED LIST changes: -Ketorolac Tromethamine 30mg Vial ONE; -Lactated Ringer's 1,000 ML IV ONE; -Midazolam HCl 1MG / ML 2ML Vial ONE; -propofoL 50 ML IV ONE
== END ==
LOC: LAB SHORT 11:59 → LAB 11:59
DX: R30.0 Dysuria (principal)
CPT/HCPCS: 87086